=== PATIENT | female | born 1960 | race Caucasian/White ===

== ENCOUNTER → 2019-03-27 12:12 | Outpatient (CLI) | payer SELFPAY | PROVIDERS: Family Provider Family Medicine; PCP Family Medicine; Visit Provider Physician Assistant | DX: J02.9 Acute pharyngitis, unspecified (principal) ==

== ENCOUNTER 2020-04-04 16:22 | Emergency (ER) | payer SELFPAY ==
[2020-04-04 16:34] VITALS: PULSE 74; RESP 16; O2SAT 99
[2020-04-04 16:35] VITALS: BP 171/99; PULSE 75; RESP 19; O2SAT 100
[2020-04-04 16:37] VITALS: BP 160/81; PULSE 74; RESP 20; TEMP 36.9; O2SAT 98; BMI 22.8
[2020-04-04 16:49] VITALS: BP 143/95; PULSE 77; RESP 28; O2SAT 100
--- NOTE | 2020-04-04 16:50 | DI.RAD.S_ITS ---
PROCEDURE: XR CHEST 1V INDICATIONS: lightheaded, dizzy TECHNIQUE: One view of the chest was acquired. COMPARISON: None. FINDINGS: Surgical changes and devices: None. Lungs and pleura: Lungs are clear. No pleural effusions or pneumothorax. Mediastinum: Mediastinal contours appear normal. Heart size is normal. Bones and chest wall: No suspicious bony lesions. Overlying soft tissues appear unremarkable. IMPRESSION: No acute cardiopulmonary pathology. Dictated by: Sylvester Kingston M.D. on 04/04/2020 at 17:19 Approved by: Sylvester Kingston M.D. on 04/04/2020 at 17:19
--- NOTE | 2020-04-04 16:50 | DI.CT.S_ITS ---
PROCEDURE: CT HEAD/BRAIN WO CON INDICATIONS: dizzy TECHNIQUE: Noncontrast 4.5 mm thick angled axial sections acquired from the foramen magnum to the vertex, with coronal and sagittal reformats. For radiation dose reduction, the following was used: automated exposure control, adjustment of mA and/or kV according to patient size. COMPARISON: [facility], CR, XR CHEST 1V, 04/04/2020, 16:47. [facility], CT, HEAD WITHOUT CONTRAST, 01/23/2017, 12:36. FINDINGS: Image quality: Excellent. CSF spaces: Basal cisterns are patent. No extra-axial fluid collections. The ventricles are symmetric in size and shape. Brain: No intracranial bleeds or masses. There is cerebral volume loss for age, with resultant ventricular and sulcal prominence. There are periventricular and deep white matter chronic small vessel ischemic changes. There is intracranial internal carotid artery atherosclerosis. Skull and face: Calvarium and visualized facial bones appear intact, without suspicious lesions. Sinuses: Visualized sinuses and mastoids are clear. IMPRESSION: Unremarkable noncontrast head CT, without an imaging explanation found for the presenting history. Dictated by: Migel Ryan M.D. on 04/04/2020 at 16:15 Approved by: Migel Ryan M.D. on 04/04/2020 at 16:16
[2020-04-04 17:03] LABS: Add Manual Diff / Slide Review NO; Basophils Absolute Auto 0 /uL (0-100); Basophils Percent Auto 0.7 % (0-2); Eosinophils Absolute Auto 200 /uL (0-450); Eosinophils Percent Auto 4.1 % (2-4); Hemoglobin 13.6 g/dL (12.0-16.0); Lymphocytes Absolute Auto 1200 /uL (1100-4500); Lymphocytes Percent Auto 25.8 % (25-40); Mean Corpuscular Hemoglobin 33.6 PG (26-34); Mean Corpuscular Volume 98.9 fL (80-100); Monocytes Absolute Auto 400 /uL (0-900); Monocytes Percent Auto 9.6 % (3-14); Neutrophils Absolute Auto 2800 /uL (1500-7000); Neutrophils Percent Auto 59.8 % (50-75); Platelet Count 185 X10^3/uL (150-400); Red Blood Cell Count 4.04 X10^6/uL (4.0-5.2); Red Cell Distribution Width 12.6 % (11.6-14.8); White Blood Cell Count 4.7 X10^3/uL (4.5-11.0)
--- NOTE | 2020-04-04 17:08 | PC.NURSE ---
pt states she felt weak, like she had to start hanging on to something so not to fall.
[2020-04-04 17:10] LABS: INR 0.9 (0.9-1.3); Prothrombin Time 10.7 SECONDS (10.1-12.7)
[2020-04-04 17:15] LABS: Alanine Aminotransferase 96 IU/L (<35); Albumin 4.3 g/dL (3.5-5.0); Albumin Globulin Ratio 1.6 (1.0-2.8); Alkaline Phosphatase 72 U/L (38-126); Aspartate Aminotransferase 126 IU/L (14-36); BUN Creatinine Ratio 21.3 (6-22); Bilirubin Total 0.6 mg/dL (0.2-1.3); Blood Urea Nitrogen 10 mg/dL (7-17); Carbon Dioxide 26 mmol/L (22-32); Chloride 104 mmol/L (98-107); Estimated Glomerular Filt Rate > 60.0 mL/min (>60); Globulin 2.7 g/dL (1.7-4.1); Glucose 111 mg/dL (80-110); HEMOLYSIS < 15 (0-50); Magnesium 1.5 mg/dL (1.6-2.3); Potassium 3.9 mmol/L (3.4-5.1); Sodium 137 mmol/L (137-145)
[2020-04-04 17:22] LABS: Appearance Urine UA CLEAR; Bilirubin Urine UA NEGATIVE (NEGATIVE); Color Urine UA YELLOW; Glucose Urine UA NEGATIVE (Negative); Ketones Urine UA 1+ (NEGATIVE); Leukocyte Esterase Urine UA TRACE (NEGATIVE); Nitrite Urine UA NEGATIVE (Negative); Occult Blood Urine UA NEGATIVE (Negative); Protein Urine UA NEGATIVE (Negative); Specific Gravity Urine UA 1.015 (1.000-1.035); Urobilinogen Urine UA 0.2 E.U./dL (0.2)
[2020-04-04 17:23] LABS: Bacteria Urine None Seen; RBC Urine None Seen (0-5/HPF); WBC Urine None Seen (0-5/HPF); pH Urine UA 6.5 (4.5-8.0)
[2020-04-04 17:25] LABS: Troponin I < 0.012 ng/mL (0.01-0.034)
[2020-04-04 17:27] LABS: Culture Indicated Urine Cult Not Indicated; Urine Comments Microscopic Normal
[2020-04-04] MEDS: SODIUM CHLORIDE 0.9% 1,000 ML 1000 ML IV (17:52)
[2020-04-04 19:33] VITALS: BP 148/89; BP 159/87; BP 166/87; PULSE 73; PULSE 82
[2020-04-04] MEDS: MAGNESIUM OXIDE 400 MG TABLET PO (19:36)
--- NOTE | 2020-04-04 19:37 | PC.NURSE ---
Pt received one dose of 400mg po magnesium oxide and did not received provider ordered dose scheduled for tomorrow at 0900.
[2020-04-04 19:48] LABS: Creatine Kinase 68 U/L (30-135)
[2020-04-04 20:01] LABS: Troponin I < 0.012 ng/mL (0.01-0.034)
--- NOTE | 2020-04-04 20:08 | ED.DIZZY ---
HPI - Dizziness <KIRILL Maravilla - Last Filed: 04/04/20 20:29> General Chief Complaint: Dizziness Stated Complaint: NEAR SYNCOPE DIZZY WEAKNESS Time Seen by Provider: 04/04/20 16:33 Source: patient Mode of arrival: Ambulatory Limitations: no limitations History of Present Illness HPI Narrative: The patient is a 59-year-old female current everyday smoker with history of kidney stones who presents with a chief complaint of feeling overwhelmed on the tired today at approximately 2:30 p.m.. She states her fatigue comes in waves. She states she feels like she might pass out because she is so tired. She denies any chest pain, shortness of breath, fevers nausea vomiting diarrhea or abdominal pain. She denies any focal weakness or slurred speech. She states ?I have not had a stroke.She denies any urinary symptoms such as dysuria urgency or frequency. She denies any flank or back pain. The patient states that she drinks lots of ice tea all day, does not drink water. Related Data Home Medications Medication Instructions Recorded Confirmed No Known Home Medications 04/04/20 04/04/20 Allergies Allergy/AdvReac Type Severity Reaction Status Date / Time codeine Allergy makes me Verified 04/04/20 16:37 cry Review of Systems <KIRILL Maravilla - Last Filed: 04/04/20 20:29> Review of Systems Narrative: GENERAL: See HPI HEENT: Denies sinus pain, ear pain, sore throat, difficulty swallowing, dizziness. RESPIRATORY: Denies dyspnea, cough, wheezing, hemoptysis, sputum. CARDIOVASCULAR: Denies chest pain, palpitations, orthopnea, edema, GASTROINTESTINAL: Denies nausea, vomiting, abdominal pain, diarrhea, constipation, melena. : Denies dysuria, frequency, incontinence, hematuria, urinary retention. MUSCULOSKELETAL: denies weakness, joint pain, or bony pain SKIN: Denies rash, skin lesions, or other NEUROLOGIC: To HPI PSYCHIATRIC: No concerning psychosocial issues. 12 point review of systems is negative except for those stated above Patient History <KIRILL Maravilla - Last Filed: 04/04/20 20:29> Surgical History History of breast augmentation History of lumpectomy Social History Smoking Status: Current every day smoker Smoking Status: Current every day smoker alcohol intake frequency: 3 or more drinks per day Substance Use Type: does not use Exam <KIRILL Maravilla - Last Filed: 04/04/20 20:29> Narrative Exam Narrative: GENERAL: This is a well-nourished, well-developed patient, in no acute distress HEAD: Atraumatic. Normocephalic. No temporal or scalp tenderness. EYES: Pupils equal round and reactive. Extraocular motions intact. No scleral icterus. No injection or drainage. ENT: Nose without bleeding, purulent drainage or septal hematoma. Airway patent. NECK: Trachea midline. No JVD or lymphadenopathy. Supple, nontender, no meningeal signs. CARDIOVASCULAR: Regular rate and rhythm RESPIRATORY: Clear to auscultation. Breath sounds equal bilaterally. No wheezes, rales, or rhonchi. No cough. No accessory muscle use. GASTROINTESTINAL: Abdomen soft, non-tender, nondistended. No hepato-splenomegaly, or palpable masses. No guarding. EXTREMITIES: No clubbing, cyanosis, or edema. No joint tenderness, effusion, or edema noted. BACK: Nontender without deformity or crepitance. No flank tenderness. NEURO: AOx3. Strength is equal upper lower extremities bilaterally. Stable gait. No gross cranial nerve deficit. Clear speech. Alert and oriented. SKIN: No rash or erythema on visible skin Initial Vital Signs Initial Vital Signs: Vital Signs Pulse Rate 74 04/04/20 16:34 Respiratory Rate 16 04/04/20 16:34 Pulse Oximetry 99 04/04/20 16:34 <Gigi Gatica MD - Last Filed: 04/18/20 07:18> Initial Vital Signs Initial Vital Signs: Vital Signs Pulse Rate 74 04/04/20 16:34 Respiratory Rate 16 04/04/20 16:34 Pulse Oximetry 99 04/04/20 16:34 Scores <KIRILL Maravilla - Last Filed: 04/04/20 20:29> GCS Tiburcio coma scale eye opening: Spontaneous Tiburcio coma scale verbal response: Orientated Tiburcio coma scale motor response: Obey commands Tiburcio coma scale total score: 15 NIH Stroke Scale Level of Conciousness: Alert, keenly responsive Ask month/age: Answers both questions correctly. Open/close eyes, close hand: Performs both tasks correctly Best gaze horizontal: Normal Visual griffin: No visual loss Facial palsy: Normal symetrical movement Left arm drift: No drift for full 10 sec Right arm drift: No drift for full 10 sec Left leg drift: No drift for full 10 sec Right leg drift: No drift for full 10 sec Limb ataxia: Absent Sensory on face/arms/legs: Normal, no sensory loss Best language: No aphasia, normal Dysarthria: Normal Extinction or inattention: No abnormality Total NIH Stroke scale score: 0 Course <KIRILL Maravilla - Last Filed: 04/04/20 20:29> Orders Ordered: Discontinued Medications Sodium Chloride (Normal Saline 0.9%) 1,000 mls @ 1,000 mls/hr IV BOLUS ONE Stop: 04/04/20 17:44 Last Infusion: 04/04/20 20:25 Dose: 0 mls/hr Documented by: Admin: 04/04/20 17:52 Dose: 1,000 mls/hr Documented by: KBROTEM Magnesium Oxide (Mag Ox) 400 mg PO DAILY JANETH Magnesium Oxide (Mag Ox) 400 mg PO DAILY JANETH Last Admin: 04/04/20 19:36 Dose: 400 mg Documented by: [email or web address] Vital Signs Vital signs: Vital Signs - 8 hr 04/04/20 16:34 04/04/20 16:35 04/04/20 16:37 Temperature 98.4 F Pulse Rate 74 75 74 Pulse Rate [Orthostatic Lying] Pulse Rate [Orthostatic Standing] Respiratory Rate 16 19 20 Blood Pressure 171/99 H 160/81 H Blood Pressure [Orthostatic Lying] Blood Pressure [Orthostatic Sitting] Blood Pressure [Orthostatic Standing] Pulse Oximetry 99 100 98 04/04/20 16:49 04/04/20 19:33 Temperature Pulse Rate 77 Pulse Rate [Orthostatic Lying] 73 Pulse Rate [Orthostatic Standing] 82 Respiratory Rate 28 H Blood Pressure 143/95 H Blood Pressure [Orthostatic Lying] 159/87 H Blood Pressure [Orthostatic Sitting] 166/87 H Blood Pressure [Orthostatic Standing] 148/89 H Pulse Oximetry 100 <Gigi Gatica MD - Last Filed: 04/18/20 07:18> Orders Ordered: Discontinued Medications Sodium Chloride (Normal Saline 0.9%) 1,000 mls @ 1,000 mls/hr IV BOLUS ONE Stop: 04/04/20 17:44 Last Infusion: 04/04/20 20:25 Dose: 0 mls/hr Documented by: Admin: 04/04/20 17:52 Dose: 1,000 mls/hr Documented by: DENISAOTEM Magnesium Oxide (Mag Ox) 400 mg PO DAILY JANETH Magnesium Oxide (Mag Ox) 400 mg PO DAILY JANETH Last Admin: 04/04/20 19:36 Dose: 400 mg Documented by: LIGIA Vital Signs Vital signs: Vital Signs - 8 hr 04/04/20 16:34 04/04/20 16:35 04/04/20 16:37 Temperature 98.4 F Pulse Rate 74 75 74 Pulse Rate [Orthostatic Lying] Pulse Rate [Orthostatic Standing] Respiratory Rate 16 19 20 Blood Pressure 171/99 H 160/81 H Blood Pressure [Orthostatic Lying] Blood Pressure [Orthostatic Sitting] Blood Pressure [Orthostatic Standing] Pulse Oximetry 99 100 98 04/04/20 16:49 04/04/20 19:33 Temperature Pulse Rate 77 Pulse Rate [Orthostatic Lying] 73 Pulse Rate [Orthostatic Standing] 82 Respiratory Rate 28 H Blood Pressure 143/95 H Blood Pressure [Orthostatic Lying] 159/87 H Blood Pressure [Orthostatic Sitting] 166/87 H Blood Pressure [Orthostatic Standing] 148/89 H Pulse Oximetry 100 MDM - Dizziness <EMILI Maravilla-BC - Last Filed: 04/04/20 20:29> Lab Data Result diagrams: 04/04/20 16:40 04/04/20 16:40 Labs: Lab Results 04/04/20 04/04/20 04/04/20 Range/Units 16:40 16:40 16:40 WBC 4.7 (4.5-11.0) X10^3/uL RBC 4.04 (4.0-5.2) X10^6/uL Hgb 13.6 (12.0-16.0) g/dL Hct 40.0 (36-46) % MCV 98.9 (80-100) fL MCH 33.6 (26-34) PG MCHC 34.0 (30-36) % RDW 12.6 (11.6-14.8) % Plt Count 185 (150-400) X10^3/uL Neut % (Auto) 59.8 (50-75) % Lymph % (Auto) 25.8 (25-40) % [place] % (Auto) 9.6 (3-14) % Eos % (Auto) 4.1 H (2-4) % Baso % (Auto) 0.7 (0-2) % Neut # (Auto) 2800 (1071-8767) /uL Lymph # (Auto) 1200 (2945-4199) /uL [place] # (Auto) 400 (0-900) /uL Eos # (Auto) 200 (0-450) /uL Baso # (Auto) 0 (0-100) /uL PT 10.7 (10.1-12.7) SECONDS INR 0.9 (0.9-1.3) Sodium 137 (137-145) mmol/L Potassium 3.9 (3.4-5.1) mmol/L Chloride 104 (98-107) mmol/L Carbon Dioxide 26 (22-32) mmol/L BUN 10 (7-17) mg/dL Creatinine 0.47 L (0.52-1.04) mg/dL Estimated GFR > 60.0 (>60) mL/min BUN/Creatinine Ratio 21.3 (6-22) Glucose 111 H (80-110) mg/dL Calcium 10.0 (8.4-10.2) mg/dL Magnesium 1.5 L (1.6-2.3) mg/dL Total Bilirubin 0.6 (0.2-1.3) mg/dL AST 126 H (14-36) IU/L ALT 96 H (<35) IU/L Alkaline Phosphatase 72 (38-126) U/L Total Creatine Kinase CK-MB (CK-2) CK-MB (CK-2) Rel Index Troponin I < 0.012 (0.01-0.034) ng/mL Total Protein 7.0 (6.3-8.2) g/dL Albumin 4.3 (3.5-5.0) g/dL Globulin 2.7 (1.7-4.1) g/dL Albumin/Globulin Ratio 1.6 (1.0-2.8) Urine Color Urine Appearance Urine pH (4.5-8.0) Ur Specific [place] (1.000-1.035) Urine Protein (Negative) Urine Glucose (UA) (Negative) g/dL Urine Ketones (NEGATIVE) Urine Occult Blood (Negative) Urine Nitrate (Negative) Urine Bilirubin (NEGATIVE) Urine Urobilinogen (0.2) E.U./dL Ur Leukocyte Esterase (NEGATIVE) Urine RBC (0-5/HPF) Urine WBC (0-5/HPF) Urine Bacteria (None) Ur Culture Indicated? Micro UA Comment 04/04/20 04/04/20 04/04/20 Range/Units 16:55 18:35 19:33 WBC (4.5-11.0) X10^3/uL RBC (4.0-5.2) X10^6/uL Hgb (12.0-16.0) g/dL Hct (36-46) % MCV (80-100) fL MCH (26-34) PG MCHC (30-36) % RDW (11.6-14.8) % Plt Count (150-400) X10^3/uL Neut % (Auto) (50-75) % Lymph % (Auto) (25-40) % [place] % (Auto) (3-14) % Eos % (Auto) (2-4) % Baso % (Auto) (0-2) % Neut # (Auto) (2161-4044) /uL Lymph # (Auto) (3044-3817) /uL [place] # (Auto) (0-900) /uL Eos # (Auto) (0-450) /uL Baso # (Auto) (0-100) /uL PT (10.1-12.7) SECONDS INR (0.9-1.3) Sodium (137-145) mmol/L Potassium (3.4-5.1) mmol/L Chloride (98-107) mmol/L Carbon Dioxide (22-32) mmol/L BUN (7-17) mg/dL Creatinine (0.52-1.04) mg/dL Estimated GFR (>60) mL/min BUN/Creatinine Ratio (6-22) Glucose (80-110) mg/dL Calcium (8.4-10.2) mg/dL Magnesium (1.6-2.3) mg/dL Total Bilirubin (0.2-1.3) mg/dL AST (14-36) IU/L ALT (<35) IU/L Alkaline Phosphatase (38-126) U/L Total Creatine Kinase Cancelled 68 CK-MB (CK-2) Cancelled TNP CK-MB (CK-2) Rel Index Cancelled TNP Troponin I Cancelled < 0.012 (0.01-0.034) ng/mL Total Protein (6.3-8.2) g/dL Albumin (3.5-5.0) g/dL Globulin (1.7-4.1) g/dL Albumin/Globulin Ratio (1.0-2.8) Urine Color Yellow Urine Appearance Clear Urine pH 6.5 (4.5-8.0) Ur Specific [place] 1.015 (1.000-1.035) Urine Protein Negative (Negative) Urine Glucose (UA) Negative (Negative) g/dL Urine Ketones 1+ H (NEGATIVE) Urine Occult Blood Negative (Negative) Urine Nitrate Negative (Negative) Urine Bilirubin Negative (NEGATIVE) Urine Urobilinogen 0.2 (0.2) E.U./dL Ur Leukocyte Esterase Trace H (NEGATIVE) Urine RBC None seen (0-5/HPF) Urine WBC None seen (0-5/HPF) Urine Bacteria None seen (None) Ur Culture Indicated? Cult not indicated Micro UA Comment Microscopic normal Imaging Data CT scan - head: Radiologist's Impression: [address] [place] [address] CT Scan Report Signed Patient: Laura Montalvo KMR#: [id number] : 9Acct:[id number] Age/Sex: 59 / FDate of Service: 04/04/20 Loc: ED Accession Number: [id number] Procedure: CT head/brain wo con Ordering Provider: Miladis Sanon [facility] PROCEDURE: CT HEAD/BRAIN WO CON INDICATIONS: dizzy TECHNIQUE: Noncontrast 4.5 mm thick angled axial sections acquired from the foramen magnum to the vertex, with coronal and sagittal reformats. For radiation dose reduction, the following was used: automated exposure control, adjustment of mA and/or kV according to patient size. COMPARISON: [facility], CR, XR CHEST 1V, 04/04/2020, 16:47. [facility], CT, HEAD WITHOUT CONTRAST, 01/23/2017, 12:36. FINDINGS: Image quality: Excellent. CSF spaces: Basal cisterns are patent. No extra-axial fluid collections. The ventricles are symmetric in size and shape. Brain: No intracranial bleeds or masses. There is cerebral volume loss for age, with resultant ventricular and sulcal prominence. There are periventricular and deep white matter chronic small vessel ischemic changes. There is intracranial internal carotid artery atherosclerosis. Skull and face: Calvarium and visualized facial bones appear intact, without suspicious lesions. Sinuses: Visualized sinuses and mastoids are clear. IMPRESSION: Unremarkable noncontrast head CT, without an imaging explanation found for the presenting history. Dictated by: Migel Ryan M.D. on 04/04/2020 at 16:15 Approved by: Migel Ryan M.D. on 04/04/2020 at 16:16 Chest x-ray: Radiologist's Impression: [address] [place] [id number] XRay Report Signed Patient: Laura Montalvo KMR#: [id number] : 9Acct:[id number] Age/Sex: 59 / FDate of Service: 04/04/20 Loc: ED Accession Number: [id number] Procedure: XR chest [facility]V [facility]ST 1V INDICATIONS: lightheaded, dizzy TECHNIQUE: One view of the chest was acquired. COMPARISON: None. FINDINGS: Surgical changes and devices: None. Lungs and pleura: Lungs are clear. No pleural effusions or pneumothorax. Mediastinum: Mediastinal contours appear normal. Heart size is normal. Bones and chest wall: No suspicious bony lesions. Overlying soft tissues appear unremarkable. IMPRESSION: No acute cardiopulmonary pathology. Dictated by: Sylvester Kingston M.D. on 04/04/2020 at 17:19 Approved by: Sylvester Kingston M.D. on 04/04/2020 at 17:19 ECG Data Attestation: I personally reviewed and interpreted this ECG as follows: Interpretation: Sinus rhythm. PVC noted. Ventricular rate 72. P.r. interval 206. viewed by Dr Gavi CARTWRIGHT Narrative Medical decision making narrative: The patient is a 59-year-old female who presents with a chief complaint of sudden onset generalized weakness and dizziness. Her NIH is 0. Head CT is clean. She has a negative troponin, negative repeat troponin. Her chest x-ray an EKG had no acute findings. She feels much improved after the above-stated therapies, has normal orthostatics and a normal urinalysis endorse crusting go home. I encouraged follow-up with primary care provider as well as coming back to emergency department for any acute concerns. It is possible that this could be from drinking lots of ice tea all day, not drinking any water. Patient has no questions or concerns upon discharge and states understanding of return precautions as well as follow-up care. <Gigi Gatica MD - Last Filed: 04/18/20 07:18> Lab Data Labs: Lab Results 04/04/20 04/04/20 04/04/20 Range/Units 16:40 16:40 16:40 WBC 4.7 (4.5-11.0) X10^3/uL RBC 4.04 (4.0-5.2) X10^6/uL Hgb 13.6 (12.0-16.0) g/dL Hct 40.0 (36-46) % MCV 98.9 (80-100) fL MCH 33.6 (26-34) PG MCHC 34.0 (30-36) % RDW 12.6 (11.6-14.8) % Plt Count 185 (150-400) X10^3/uL Neut % (Auto) 59.8 (50-75) % Lymph % (Auto) 25.8 (25-40) % [place] % (Auto) 9.6 (3-14) % Eos % (Auto) 4.1 H (2-4) % Baso % (Auto) 0.7 (0-2) % Neut # (Auto) 2800 (3123-0561) /uL Lymph # (Auto) 1200 (3682-9179) /uL [place] # (Auto) 400 (0-900) /uL Eos # (Auto) 200 (0-450) /uL Baso # (Auto) 0 (0-100) /uL PT 10.7 (10.1-12.7) SECONDS INR 0.9 (0.9-1.3) Sodium 137 (137-145) mmol/L Potassium 3.9 (3.4-5.1) mmol/L Chloride 104 (98-107) mmol/L Carbon Dioxide 26 (22-32) mmol/L BUN 10 (7-17) mg/dL Creatinine 0.47 L (0.52-1.04) mg/dL Estimated GFR > 60.0 (>60) mL/min BUN/Creatinine Ratio 21.3 (6-22) Glucose 111 H (80-110) mg/dL Calcium 10.0 (8.4-10.2) mg/dL Magnesium 1.5 L (1.6-2.3) mg/dL Total Bilirubin 0.6 (0.2-1.3) mg/dL AST 126 H (14-36) IU/L ALT 96 H (<35) IU/L Alkaline Phosphatase 72 (38-126) U/L Total Creatine Kinase CK-MB (CK-2) CK-MB (CK-2) Rel Index Troponin I < 0.012 (0.01-0.034) ng/mL Total Protein 7.0 (6.3-8.2) g/dL Albumin 4.3 (3.5-5.0) g/dL Globulin 2.7 (1.7-4.1) g/dL Albumin/Globulin Ratio 1.6 (1.0-2.8) Urine Color Urine Appearance Urine pH (4.5-8.0) Ur Specific [place] (1.000-1.035) Urine Protein (Negative) Urine Glucose (UA) (Negative) g/dL Urine Ketones (NEGATIVE) Urine Occult Blood (Negative) Urine Nitrate (Negative) Urine Bilirubin (NEGATIVE) Urine Urobilinogen (0.2) E.U./dL Ur Leukocyte Esterase (NEGATIVE) Urine RBC (0-5/HPF) Urine WBC (0-5/HPF) Urine Bacteria (None) Ur Culture Indicated? Micro UA Comment 04/04/20 04/04/20 04/04/20 Range/Units 16:55 18:35 19:33 WBC (4.5-11.0) X10^3/uL RBC (4.0-5.2) X10^6/uL Hgb (12.0-16.0) g/dL Hct (36-46) % MCV (80-100) fL MCH (26-34) PG MCHC (30-36) % RDW (11.6-14.8) % Plt Count (150-400) X10^3/uL Neut % (Auto) (50-75) % Lymph % (Auto) (25-40) % [place] % (Auto) (3-14) % Eos % (Auto) (2-4) % Baso % (Auto) (0-2) % Neut # (Auto) (2734-5332) /uL Lymph # (Auto) (5881-1737) /uL [place] # (Auto) (0-900) /uL Eos # (Auto) (0-450) /uL Baso # (Auto) (0-100) /uL PT (10.1-12.7) SECONDS INR (0.9-1.3) Sodium (137-145) mmol/L Potassium (3.4-5.1) mmol/L Chloride (98-107) mmol/L Carbon Dioxide (22-32) mmol/L BUN (7-17) mg/dL Creatinine (0.52-1.04) mg/dL Estimated GFR (>60) mL/min BUN/Creatinine Ratio (6-22) Glucose (80-110) mg/dL Calcium (8.4-10.2) mg/dL Magnesium (1.6-2.3) mg/dL Total Bilirubin (0.2-1.3) mg/dL AST (14-36) IU/L ALT (<35) IU/L Alkaline Phosphatase (38-126) U/L Total Creatine Kinase Cancelled 68 CK-MB (CK-2) Cancelled TNP CK-MB (CK-2) Rel Index Cancelled TNP Troponin I Cancelled < 0.012 (0.01-0.034) ng/mL Total Protein (6.3-8.2) g/dL Albumin (3.5-5.0) g/dL Globulin (1.7-4.1) g/dL Albumin/Globulin Ratio (1.0-2.8) Urine Color Yellow Urine Appearance Clear Urine pH 6.5 (4.5-8.0) Ur Specific [place] 1.015 (1.000-1.035) Urine Protein Negative (Negative) Urine Glucose (UA) Negative (Negative) g/dL Urine Ketones 1+ H (NEGATIVE) Urine Occult Blood Negative (Negative) Urine Nitrate Negative (Negative) Urine Bilirubin Negative (NEGATIVE) Urine Urobilinogen 0.2 (0.2) E.U./dL Ur Leukocyte Esterase Trace H (NEGATIVE) Urine RBC None seen (0-5/HPF) Urine WBC None seen (0-5/HPF) Urine Bacteria None seen (None) Ur Culture Indicated? Cult not indicated Micro UA Comment Microscopic normal Discharge Plan Departure Patient Disposition: Home Clinical Impression: Weakness Discharge Date/Time: 04/04/20 20:30 Instructions: DI for Dehydration -- Adult, DI for Dizziness-Nonvertigo Activity Restrictions/Additional Instructions: Thank you for trusting us with your care today. As discussed, your lab work came back well as well as your imaging. It is possible that your drinking too much iced tea, not enough water. Please push non caffeinated fluids. Please follow-up with primary care provider in the next few days. Please come back to emergency department for any acute concerns such as chest pain, shortness of breath etcetera Please follow-up with [facility]. I believe that Dr. Goel took over for many of Dr. England's patients I also given contact information [facility] human resources manager manufacturing. They can help you identify primary care provider but is accepting new patients. Prescriptions: No Action No Known Home Medications RF: 0 Referrals: [facility] [Outside] Kendall England MD [Primary Care Provider] - <Gigi Gatica MD - Last Filed: 04/18/20 07:18> Cosign ED Attending Cosignature Attestation: I was immediately available in the department for consultation. This documentation has been reviewed and I agree with assessment and plan. Supervised by Gigi Gatica MD
[2020-04-04 20:30] VITALS: BP 148/89; PULSE 72; RESP 13; O2SAT 99
== END 2020-04-04 20:30 | disposition home or self-care (01) ==
PROVIDERS: Emergency Provider Nurse Practitioner Family; Family Provider Family Medicine; PCP Family Medicine
DX: R53.1 Weakness (principal); R42 Dizziness and giddiness
CPT/HCPCS: 36415; 70450; 71045; 80053; 81003; 81015; 82550; 83735; 84484; 85025; 85610; 93005; 93010; 96360; 96361; 99284

== ENCOUNTER → 2020-12-26 13:51 | Outpatient (CLI) | payer OTHER, SELFPAY ==
[2020-12-26] MEDS: COVID-19 VACC #1, MRNA(MOD) 100 MCG/0.5 ML VIAL IM (13:56)
== END ==
PROVIDERS: Visit Provider Internal Medicine
DX: Z23 Encounter for immunization (principal)
CPT/HCPCS: 0011A; 91301

== ENCOUNTER → 2021-01-23 13:43 | Outpatient (CLI) | payer OTHER, SELFPAY ==
[2021-01-23] MEDS: COVID-19 VACC #2, MRNA(MOD) 100 MCG/0.5 ML VIAL IM (13:48)
== END ==
PROVIDERS: Visit Provider Internal Medicine
DX: Z23 Encounter for immunization (principal)
CPT/HCPCS: 0012A; 91301

== ENCOUNTER 2023-05-21 11:42 | Observation (INO) | payer MEDICAID, OTHER, SELFPAY ==
[2023-05-21 11:44] VITALS: BP 95/51; PULSE 81; RESP 14; TEMP 36.1; O2SAT 99; BMI 22.4
--- NOTE | 2023-05-21 12:39 | DI.US.S_ITS ---
PROCEDURE: US PERIPH VENOUS LOW EXTREM LT INDICATIONS: Please evaluate for dvt TECHNIQUE: Real-time imaging, as well as color and pulse Doppler interrogation, were performed of the lower extremity deep veins from the inguinal ligament to the popliteal fossa, with documentation of the visualized calf veins. COMPARISON: None. FINDINGS: Occlusive deep venous thrombosis can be seen from the common femoral vein through the femoral vein and including the popliteal vein, with potential trickle flow seen within the left popliteal vein. The visualized profundus femoris vein and the greater saphenous vein are also occluded. IMPRESSION: Extensive left lower extremity deep venous thrombosis can be seen, with occlusion involving the common femoral vein through the popliteal vein. The visualized greater saphenous vein and the profundus femoral strain are also seen. Dictated by: Migel Ryan M.D. on 05/21/2023 at 12:28 Approved by: Migel Ryan M.D. on 05/21/2023 at 12:29
[2023-05-21 15:01] VITALS: BP 113/52; PULSE 70; O2SAT 100
--- NOTE | 2023-05-21 15:07 | ED.EXTPRO ---
HPI - Extremity Problem <Marquita Ivey PA-C - Last Filed: 05/21/23 16:22> General Chief complaint: Extremity Problem,Nontraumatic Stated complaint: rule out DVT Time Seen by Provider: 05/21/23 14:31 Source: patient Mode of arrival: Wheelchair History of Present Illness HPI Narrative: Patient is a 62-year-old female who presents with unilateral lower extremity swelling. She reports she recently had a dental infection with delayed access to antibiotic treatment and she was quite ill for approximately 1 month, mostly lying in bed, with abdominal pain and diarrhea. During this time she had very little activity. She is not take any hormones. She is a 30 year smoker but recently quit. She presents today because she has left lower extremity swelling. She has minimal left lower extremity pain, 2/10. She denies any chest pain, cough, shortness of breath. Related Data Previous Rx's Medication Instructions Recorded apixaban 5 mg tablet 5 mg PO BID 90 days #189 tabs 05/22/23 Allergies Allergy/AdvReac Type Severity Reaction Status Date / Time codeine Allergy makes me Verified 05/21/23 11:44 cry Review of Systems <Marquita Ivey PA-C - Last Filed: 05/21/23 16:22> Review of Systems ROS Unobtainable: All systems reviewed & are unremarkable except as noted in HPI and below Patient History <Marquita Ivey PA-C - Last Filed: 05/21/23 16:22> Surgical History History of breast augmentation History of lumpectomy Social History household members: none Smoking Status: Former smoker alcohol intake: former Smoking Status: Current every day smoker alcohol intake frequency: 3 or more drinks per day Substance Use Type: does not use Exam <Marquita Ivey PA-C - Last Filed: 05/21/23 16:22> Narrative Exam Narrative: GENERAL: 62 year old patient appears stated age. Well-developed patient, in no distress. NEURO: AOx3. HEAD: Atraumatic. Normocephalic. EYES: Pupils equal round and reactive. Extraocular motions intact. No scleral icterus. No injection or drainage. CARDIOVASCULAR: Regular rate and rhythm without murmurs, gallops, or rubs. RESPIRATORY: Clear to auscultation. Breath sounds equal bilaterally. No wheezes, rales, or rhonchi. EXTREMITIES: Diffuse edema of left lower extremity from ankle to knee, minimal appreciable swelling above the knee into the groin. Distal pulses intact. Foot is warm, sensation is intact. SKIN: No rash or erythema of visible areas Initial Vital Signs Initial Vital Signs: Vital Signs Temperature 97.0 F L 05/21/23 11:44 Pulse Rate 81 05/21/23 11:44 Respiratory Rate 14 05/21/23 11:44 Blood Pressure 95/51 L 05/21/23 11:44 Pulse Oximetry 99 05/21/23 11:44 Oxygen Delivery Method Room Air 05/21/23 11:44 <Gigi Gatica MD - Last Filed: 05/29/23 07:10> Initial Vital Signs Initial Vital Signs: Vital Signs Temperature 97.0 F L 05/21/23 11:44 Pulse Rate 81 05/21/23 11:44 Respiratory Rate 14 05/21/23 11:44 Blood Pressure 95/51 L 05/21/23 11:44 Pulse Oximetry 99 05/21/23 11:44 Oxygen Delivery Method Room Air 05/21/23 11:44 Scores <Marquita Ivey PA-C - Last Filed: 05/21/23 16:22> Carlito' Criteria for DVT Active Cancer (Treatment within 6 months): No Bedridden recently >3 days or major surgery within 4 weeks: Yes Calf Swelling >3cm compared to other leg: Yes Collateral (nonvericose) superficial veins present: No Entire leg swollen: Yes Localized tenderness along the deep vein system: No Pitting edema, confined to symtomatic leg: No Paralysis, paresis, or recent plaster immobilization of ext: No Previously documented DVT: No Alternative dx to DVT as likely or more likely: No Sincere criteria for DVT: 3 <Gigi Gatica MD - Last Filed: 05/29/23 07:10> Sincere Criteria for DVT Carlito' criteria for DVT: 3 Course <Marquita Ivey PA-C - Last Filed: 05/21/23 16:22> Orders Ordered: Discontinued Medications Acetaminophen (Acetaminophen 325 Mg Tablet) 650 mg PO Q6H PRN PRN Reason: Fever/Mild Pain (1-3) Last Admin: 05/21/23 23:59 Dose: 650 mg Documented By: Apixaban (Apixaban 5 Mg Tablet) 10 mg PO BID [facility] Stop: 05/28/23 21:01 Last Admin: 05/22/23 08:35 Dose: 10 mg Documented By: TERESA Heparin Sodium (Porcine) (Heparin 5,000 Unit/Ml Vial) 4,600 unit 80 unit/kg (4600 unit) IV NOW ONE Stop: 05/21/23 18:48 Last Admin: 05/21/23 19:58 Dose: 4,600 unit Documented By: Heparin Sodium/Dextrose (Heparin Drip) 25,000 unit in 500 mls @ 24 mls/hr IV CONT [facility]; Protocol Stop: 05/22/23 10:00 Last Admin: 05/21/23 20:09 Dose: 1,200 units/hr, 24 mls/hr Documented By: Co-signed By: ADI Naloxone HCl (Naloxone 0.4 Mg/Ml Vial) 0.2 mg IV Q2MIN PRN PRN Reason: Opiate Reversal Ondansetron HCl (Ondansetron 4 Mg/2 Ml Inj) 4 mg IV Q8HR PRN PRN Reason: Nausea And Vomiting Vital Signs Vital signs: Vital Signs - 8 hr 05/21/23 11:44 05/21/23 15:01 Temperature 97.0 F L Pulse Rate 81 70 Respiratory Rate 14 Blood Pressure 95/51 L 113/52 L Pulse Oximetry 99 100 Oxygen Delivery Method Room Air Room Air <Gigi Gatica MD - Last Filed: 05/29/23 07:10> Orders Ordered: Discontinued Medications Acetaminophen (Acetaminophen 325 Mg Tablet) 650 mg PO Q6H PRN PRN Reason: Fever/Mild Pain (1-3) Last Admin: 05/21/23 23:59 Dose: 650 mg Documented By: Apixaban (Apixaban 5 Mg Tablet) 10 mg PO BID [facility] Stop: 05/28/23 21:01 Last Admin: 05/22/23 08:35 Dose: 10 mg Documented By: TERESA Heparin Sodium (Porcine) (Heparin 5,000 Unit/Ml Vial) 4,600 unit 80 unit/kg (4600 unit) IV NOW ONE Stop: 05/21/23 18:48 Last Admin: 05/21/23 19:58 Dose: 4,600 unit Documented By: SR Heparin Sodium/Dextrose (Heparin Drip) 25,000 unit in 500 mls @ 24 mls/hr IV CONT JANETH; Protocol Stop: 05/22/23 10:00 Last Admin: 05/21/23 20:09 Dose: 1,200 units/hr, 24 mls/hr Documented By: Co-signed By: VH Naloxone HCl (Naloxone 0.4 Mg/Ml Vial) 0.2 mg IV Q2MIN PRN PRN Reason: Opiate Reversal Ondansetron HCl (Ondansetron 4 Mg/2 Ml Inj) 4 mg IV Q8HR PRN PRN Reason: Nausea And Vomiting Vital Signs Vital signs: Vital Signs - 8 hr 05/21/23 11:44 05/21/23 15:01 Temperature 97.0 F L Pulse Rate 81 70 Respiratory Rate 14 Blood Pressure 95/51 L 113/52 L Pulse Oximetry 99 100 Oxygen Delivery Method Room Air Room Air MDM - Extremity (Nontraumatic) <Marquita Ivey PA-C - Last Filed: 05/21/23 16:22> Lab Data 05/22/23 02:17 05/22/23 02:17 Labs: Lab Results 05/21/23 05/21/23 05/21/23 Range/Units 16:01 16:01 16:01 WBC 6.6 (4.5-11.0) X10^3/uL RBC 4.02 (4.0-5.2) X10^6/uL Hgb 13.2 (12.0-16.0) g/dL Hct 38.7 (36-46) % MCV 96.2 (80-100) fL MCH 32.7 (26-34) PG MCHC 34.0 (30-36) % RDW 13.1 (11.6-14.8) % Plt Count 318 (150-400) X10^3/uL Neut % (Auto) 73.8 (50-75) % Lymph % (Auto) 9.9 L (25-40) % [place] % (Auto) 10.5 (3-14) % Eos % (Auto) 5.0 H (2-4) % Baso % (Auto) 0.8 (0-2) % Neut # (Auto) 4900 (8082-9853) /uL Lymph # (Auto) 700 L (4080-9958) /uL [place] # (Auto) 700 (0-900) /uL Eos # (Auto) 300 (0-450) /uL Baso # (Auto) 100 (0-100) /uL PT 13.2 H (10.1-12.7) SECONDS INR 1.2 (0.9-1.3) APTT 29 (26-36) SECONDS Sodium 136 L (137-145) mmol/L Potassium 4.0 (3.4-5.1) mmol/L Chloride 103 (98-107) mmol/L Carbon Dioxide 26 (22-32) mmol/L BUN 15 (7-17) mg/dL Creatinine 0.71 (0.52-1.04) mg/dL Estimated GFR > 60 (>60) mL/min BUN/Creatinine Ratio 21.1 (6-22) Glucose 111 H (80-110) mg/dL Calcium 9.9 (8.4-10.2) mg/dL Imaging Data US - DVT: Radiologist's Impression: PROCEDURE:? US PERIPH VENOUS LOW EXTREM LT ? INDICATIONS:? Please evaluate for dvt ? TECHNIQUE:? Real-time imaging, as well as color and pulse Doppler interrogation, were performed of the lower extremity deep veins from the inguinal ligament to the popliteal fossa, with documentation of the visualized calf veins.? ? COMPARISON:? None. ? FINDINGS:? Occlusive deep venous thrombosis can be seen from the common femoral vein through the femoral vein and including the popliteal vein, with potential trickle flow seen within the left popliteal vein. ? The visualized profundus femoris vein and the greater saphenous vein are also occluded. ? ? IMPRESSION:? Extensive left lower extremity deep venous thrombosis can be seen, with occlusion involving the common femoral vein through the popliteal vein.? The visualized greater saphenous vein and the profundus femoral strain are also seen.? ? ? Dictated by: Migel Ryan M.D. on 05/21/2023 at 12:28 ? ? Approved by: Migel Ryan M.D. on 05/21/2023 at 12:29 ? MDM Narrative Medical decision making narrative: Multiple etiologies for patient's symptoms considered including, but not limited to: DVT, cellulitis, soft tissue injury Ultrasound shows extensive DVT with occlusion of the common femoral vein through the popliteal vein. Patient will be admitted to observation on a heparin drip. Patient and her son understand her diagnosis and treatment. 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 She is not in any pain at this time. Hospitalist aware and will admit. <Gigi Gatica MD - Last Filed: 05/29/23 07:10> Lab Data Labs: Lab Results 05/21/23 05/21/23 05/21/23 Range/Units 16:01 16:01 16:01 WBC 6.6 (4.5-11.0) X10^3/uL RBC 4.02 (4.0-5.2) X10^6/uL Hgb 13.2 (12.0-16.0) g/dL Hct 38.7 (36-46) % MCV 96.2 (80-100) fL MCH 32.7 (26-34) PG MCHC 34.0 (30-36) % RDW 13.1 (11.6-14.8) % Plt Count 318 (150-400) X10^3/uL Neut % (Auto) 73.8 (50-75) % Lymph % (Auto) 9.9 L (25-40) % [place] % (Auto) 10.5 (3-14) % Eos % (Auto) 5.0 H (2-4) % Baso % (Auto) 0.8 (0-2) % Neut # (Auto) 4900 (4664-5211) /uL Lymph # (Auto) 700 L (3088-8726) /uL [place] # (Auto) 700 (0-900) /uL Eos # (Auto) 300 (0-450) /uL Baso # (Auto) 100 (0-100) /uL PT 13.2 H (10.1-12.7) SECONDS INR 1.2 (0.9-1.3) APTT 29 (26-36) SECONDS Sodium 136 L (137-145) mmol/L Potassium 4.0 (3.4-5.1) mmol/L Chloride 103 (98-107) mmol/L Carbon Dioxide 26 (22-32) mmol/L BUN 15 (7-17) mg/dL Creatinine 0.71 (0.52-1.04) mg/dL Estimated GFR > 60 (>60) mL/min BUN/Creatinine Ratio 21.1 (6-22) Glucose 111 H (80-110) mg/dL Calcium 9.9 (8.4-10.2) mg/dL Discharge Plan Departure Patient Disposition: Admitted As Inpatient Clinical Impression: Deep vein thrombosis of lower extremity Admit Date/Time: 05/21/23 17:43 Admit Provider: Brad Gardiner <Gigi Gatica MD - Last Filed: 05/29/23 07:10> Cosign ED Attending Cosignature Attestation: I was immediately available in the department for consultation. ?This documentation has been reviewed and I agree with assessment and plan. Supervised by Gigi Gatica MD
[2023-05-21 16:12] LABS: Add Manual Diff / Slide Review NO; Basophils Absolute Auto 100 /uL (0-100); Basophils Percent Auto 0.8 % (0-2); Eosinophils Absolute Auto 300 /uL (0-450); Hematocrit 38.7 % (36-46); Hemoglobin 13.2 g/dL (12.0-16.0); Lymphocytes Absolute Auto 700 /uL (1100-4500); Lymphocytes Percent Auto 9.9 % (25-40); Mean Corpuscular Hemoglobin 32.7 PG (26-34); Mean Corpuscular Volume 96.2 fL (80-100); Monocytes Absolute Auto 700 /uL (0-900); Monocytes Percent Auto 10.5 % (3-14); Neutrophils Absolute Auto 4900 /uL (1500-7000); Neutrophils Percent Auto 73.8 % (50-75); Platelet Count 318 X10^3/uL (150-400); Red Blood Cell Count 4.02 X10^6/uL (4.0-5.2); Red Cell Distribution Width 13.1 % (11.6-14.8); White Blood Cell Count 6.6 X10^3/uL (4.5-11.0)
[2023-05-21 16:22] LABS: INR 1.2 (0.9-1.3); Prothrombin Time 13.2 SECONDS (10.1-12.7)
[2023-05-21 16:25] LABS: PTT Partial Thromboplastin Tim 29 SECONDS (26-36)
[2023-05-21 16:26] LABS: BUN Creatinine Ratio 21.1 (6-22); Blood Urea Nitrogen 15 mg/dL (7-17); Calcium 9.9 mg/dL (8.4-10.2); Carbon Dioxide 26 mmol/L (22-32); Chloride 103 mmol/L (98-107); Estimated Glomerular Filt Rate > 60 mL/min (>60); Glucose 111 mg/dL (80-110); HEMOLYSIS < 15 (0-50); Sodium 136 mmol/L (137-145)
--- NOTE | 2023-05-21 18:26 | P.HP_ITS ---
History of Present Illness History of Present Illness Date Patient Seen: 05/21/23 Time Patient Seen: 16:00 Chief complaint: rule out DVT Narrative: Ms. Montalvo is a 62W with PMH of periodontal disease who presents to the hospital with swollen left leg. She states she had periodontitis for much of her life. She had worsening symptoms about a month ago. She then developed generalized abdominal discomfort and bloating which she attributes to her dental disease. She has been basically in bed and minimally mobile for the last month. She has noted over the last few days swelling in her left leg. She had no chest pain or shortness of breath. On no medications except for an antibiotic for her dental issues. No history of VTE, no family history of VTE. No recent travel. She has no abnormal vaginal bleeding. She has a history of smoking. She notes recently some night sweats. No weight loss. Never had a colonoscopy. No blood in stool. In the ED workup was done, vitals notable for afebrile, blood pressure 90s/50s, heart rate in 70s, sats 100% on room air. Labs reviewed and notable for WBC 6.6, hgb 13.2, plts 318. INR 1.2. Na 136, BUN 15, creatinine 0.71. Vascular ultrasound of her left leg showed extensive left DVT involving femoral vein. She was admitted for further treatment. [facility] Surgical History History of breast augmentation History of lumpectomy Social History Smoking Status: Current every day smoker Meds Home Medications and Allergies Home Medications Medication Instructions Recorded Confirmed Type No Known Home Medications 04/04/20 04/04/20 History Allergies Allergy/AdvReac Type Severity Reaction Status Date / Time codeine Allergy makes me Verified 05/21/23 11:44 cry Review of Systems Review of Systems Narrative: 14 systems reviewed and negative aside from what is noted in HPI Exam Vital Signs (past 8 hours): - 05/21/23 11:44 05/21/23 15:01 Temperature 97.0 F L Pulse Rate 81 70 Respiratory Rate 14 Blood Pressure 95/51 L 113/52 L Pulse Oximetry 99 100 Oxygen Delivery Method Room Air Room Air Oxygen Delivery Method Room Air Narrative Exam Narrative: GEN: no acute distress CV: regular rate and rhythm, no murmurs PULM: clear bilaterally ABD: soft, nontender EXT: entirety of left leg swollen, slightly erythematous Objective Labs 05/21/23 16:01 05/21/23 16:01 Labs: Laboratory Results - last 24 hr 05/21/23 05/21/23 05/21/23 16:01 16:01 16:01 WBC 6.6 RBC 4.02 Hgb 13.2 Hct 38.7 MCV 96.2 MCH 32.7 MCHC 34.0 RDW 13.1 Plt Count 318 Neut % (Auto) 73.8 Lymph % (Auto) 9.9 L [place] % (Auto) 10.5 Eos % (Auto) 5.0 H Baso % (Auto) 0.8 Neut # (Auto) 4900 Lymph # (Auto) 700 L [place] # (Auto) 700 Eos # (Auto) 300 Baso # (Auto) 100 PT 13.2 H INR 1.2 APTT 29 Sodium 136 L Potassium 4.0 Chloride 103 Carbon Dioxide 26 BUN 15 Creatinine 0.71 Estimated GFR > 60 BUN/Creatinine Ratio 21.1 Glucose 111 H Calcium 9.9 Assessment & Plan Assessment & Plan narrative: 1. Acute DVT -suspect etiology is possibly decreased mobility recently -due to size of DVT has higher risk of progression and complication so will observe in hospital -no clinical signs or symptoms of PE -no signs of phlegmasia cerulea dolens -start anticoagulation with IV heparin -plan to switch on dc to oral medication for at least 3 months -if abdominal pain returns will get CT of abdomen -will need to complete up to date cancer screening as outpatient, including colonoscopy which she has never had -will need to setup pcp on discharge 2. Periodontitis -she has been prescribed antibiotic, last dose tonight 05/21 I have discussed plan and obtained history from patient and family. I have discussed plan of care with ED PA and bedside nurse. I have reviewed labs, imaging. CODE: Full Proxy: Letha Donovan, son [facility] - Meds 'Current medications' to include all prescriptions, [id number] products, herbals, cannabis/cannabidiol products, and vitamin/mineral/dietary (nutritional) supplements. I have utilized all available resources to obtain, update, or review the patient?s current medications. [If Yes, STOP here]: Yes
[2023-05-21 18:29] VITALS: BMI 22.6
[2023-05-21 19:00] VITALS: BP 101/63; PULSE 90; RESP 18; TEMP 36.4; O2SAT 98
[2023-05-21 19:34] VITALS: BP 91/57; PULSE 97; RESP 17; TEMP 37.7; O2SAT 94
[2023-05-21] MEDS: HEPARIN 5,000 UNIT/ML VIAL 4600 UNIT IV (19:58)
[2023-05-21] MEDS: HEPARIN DRIP 25,000 UNIT/500 ML IV.SOLN 24 UNIT IV (20:09)
[2023-05-21 23:40] VITALS: BP 85/46; PULSE 86; RESP 16; TEMP 37.1; O2SAT 96
[2023-05-21] MEDS: ACETAMINOPHEN 325 MG TABLET 650 MG PO (23:59)
[2023-05-22 02:24] LABS: Add Manual Diff / Slide Review NO; Basophils Absolute Auto 0 /uL (0-100); Basophils Percent Auto 0.7 % (0-2); Eosinophils Absolute Auto 200 /uL (0-450); Eosinophils Percent Auto 3.8 % (2-4); Lymphocytes Absolute Auto 800 /uL (1100-4500); Lymphocytes Percent Auto 12.6 % (25-40); Mean Corpuscular HGB Conc 34.1 % (30-36); Mean Corpuscular Hemoglobin 32.6 PG (26-34); Mean Corpuscular Volume 95.5 fL (80-100); Monocytes Absolute Auto 800 /uL (0-900); Monocytes Percent Auto 12.6 % (3-14); Neutrophils Absolute Auto 4500 /uL (1500-7000); Neutrophils Percent Auto 70.3 % (50-75); Platelet Count 346 X10^3/uL (150-400); Red Blood Cell Count 3.67 X10^6/uL (4.0-5.2); White Blood Cell Count 6.4 X10^3/uL (4.5-11.0)
[2023-05-22 02:35] LABS: Blood Urea Nitrogen 13 mg/dL (7-17); Calcium 9.1 mg/dL (8.4-10.2); Carbon Dioxide 24 mmol/L (22-32); Chloride 102 mmol/L (98-107); Estimated Glomerular Filt Rate > 60 mL/min (>60); Glucose 110 mg/dL (80-110); HEMOLYSIS < 15 (0-50); Potassium 3.9 mmol/L (3.4-5.1); Sodium 133 mmol/L (137-145)
[2023-05-22 02:48] LABS: PTT Partial Thromboplastin Tim 144 SECONDS (26-36)
[2023-05-22 05:36] VITALS: BP 91/51; PULSE 63; RESP 17; TEMP 36.9; O2SAT 96
[2023-05-22 08:00] VITALS: BP 82/46; PULSE 68; RESP 16; O2SAT 98
[2023-05-22] MEDS: APIXABAN 5 MG TABLET 10 MG PO (08:35)
[2023-05-22 08:44] LABS: PTT Partial Thromboplastin Tim 122 SECONDS (26-36)
--- NOTE | 2023-05-22 11:37 | PM.DS.1 ---
History of Present Illness History of Present Illness Date Patient Seen: 05/22/23 Time Patient Seen: 11:38 Chief complaint: rule out DVT Narrative: Per admitting provider, Ms. Montalvo is a 62W with PMH of periodontal disease who presents to the hospital with swollen left leg. She states she had periodontitis for much of her life. She had worsening symptoms about a month ago. She then developed generalized abdominal discomfort and bloating which she attributes to her dental disease. She has been basically in bed and minimally mobile for the last month. She has noted over the last few days swelling in her left leg. She had no chest pain or shortness of breath. On no medications except for an antibiotic for her dental issues. No history of VTE, no family history of VTE. No recent travel. She has no abnormal vaginal bleeding. She has a history of smoking. She notes recently some night sweats. No weight loss. Never had a colonoscopy. No blood in stool. In the ED workup was done, vitals notable for afebrile, blood pressure 90s/50s, heart rate in 70s, sats 100% on room air. Labs reviewed and notable for WBC 6.6, hgb 13.2, plts 318. INR 1.2. Na 136, BUN 15, creatinine 0.71. Vascular ultrasound of her left leg showed extensive left DVT involving femoral vein. She was admitted for further treatment. Discharge Providers Provider Date of admission: 05/21/23 17:43 Discharge Date: 05/23/23 Primary care physician: Doctor Sheri MD Discharge provider: Manny Cowan DO Summary Hospital Course Discharge Diagnosis: 1. Acute DVT 2. Periodontitis Hospital Course: This is a 62 year old female who presented with LLE swelling. She was found to have an extensively sized DVT on ultrasound. She was started on IV heparin which she tolerated well. She was transitioned to oral anticoagulation the following morning with no signs of phlemasia ceulea dolens. She had minimal pain and was able to ambulate without assistance. She was borderline hypotensive, but had no abdominal pain, dizziness, or respiratory symptoms concnerning for PE or progression. Patient reported that her blood pressure usually runs this low. I recommend cancer screening as an outpatient with PCP, she was given resources to establish with a primary care, along with a prescription for 3 months of apixaban after she enrolled with health insurance. Time Spent with Patient Time spent: Greater than 30 minutes Exam Vital Signs (past 8 hours): - 05/22/23 05:36 05/22/23 08:00 Temperature 98.5 F Pulse Rate 63 68 Respiratory Rate 17 16 Blood Pressure 91/51 L 82/46 L Pulse Oximetry 96 98 Oxygen Flow Rate 0 Oxygen Delivery Method Room Air Oxygen Flow Rate 0 Narrative Exam Narrative: GEN: no acute distress CV: regular rate and rhythm, no murmurs PULM: clear bilaterally ABD: soft, nontender EXT: entirety of left leg swollen, mild erythema but no warmth or tenderness Objective Labs 05/22/23 02:17 05/22/23 02:17 Labs: Laboratory Results - last 24 hr 05/21/23 05/21/23 05/21/23 16:01 16:01 16:01 WBC 6.6 RBC 4.02 Hgb 13.2 Hct 38.7 MCV 96.2 MCH 32.7 MCHC 34.0 RDW 13.1 Plt Count 318 Neut % (Auto) 73.8 Lymph % (Auto) 9.9 L [place] % (Auto) 10.5 Eos % (Auto) 5.0 H Baso % (Auto) 0.8 Neut # (Auto) 4900 Lymph # (Auto) 700 L [place] # (Auto) 700 Eos # (Auto) 300 Baso # (Auto) 100 PT 13.2 H INR 1.2 APTT 29 Sodium 136 L Potassium 4.0 Chloride 103 Carbon Dioxide 26 BUN 15 Creatinine 0.71 Estimated GFR > 60 BUN/Creatinine Ratio 21.1 Glucose 111 H Calcium 9.9 05/22/23 05/22/23 05/22/23 02:17 02:17 02:17 WBC 6.4 RBC 3.67 L Hgb 12.0 Hct 35.0 L MCV 95.5 MCH 32.6 MCHC 34.1 RDW 13.0 Plt Count 346 Neut % (Auto) 70.3 Lymph % (Auto) 12.6 L [place] % (Auto) 12.6 Eos % (Auto) 3.8 Baso % (Auto) 0.7 Neut # (Auto) 4500 Lymph # (Auto) 800 L [place] # (Auto) 800 Eos # (Auto) 200 Baso # (Auto) 0 PT INR APTT 144 H* D Sodium 133 L Potassium 3.9 Chloride 102 Carbon Dioxide 24 BUN 13 Creatinine 0.65 Estimated GFR > 60 BUN/Creatinine Ratio 20.0 Glucose 110 Calcium 9.1 05/22/23 08:10 WBC RBC Hgb Hct MCV MCH MCHC RDW Plt Count Neut % (Auto) Lymph % (Auto) [place] % (Auto) Eos % (Auto) Baso % (Auto) Neut # (Auto) Lymph # (Auto) [place] # (Auto) Eos # (Auto) Baso # (Auto) PT INR APTT 122 H* D Sodium Potassium Chloride Carbon Dioxide BUN Creatinine Estimated GFR BUN/Creatinine Ratio Glucose Calcium PFSH Surgical History History of breast augmentation History of lumpectomy Social History household members: none Smoking Status: Former smoker alcohol intake: former Discharge Plan Discharge Plan Patient Disposition: Home Provider Discharge Comment: You were admitted to the hospital with a clot in your lower leg. This is treated with a blood thinner. Please take your dose of the blood thinner starting tonight (10 mg). This will continue twice a day for the next 6 days, then starting next Thursday morning take 1 pill twice a day (5 mg) which will continue for at least the next 3 months. 3 month prescription was sent to give you time to establish care with a primary provider. Discharge orders & Medications Prescriptions: New apixaban 5 mg tablet 5 mg PO BID 90 Days Qty: 189 0RF Rx Instructions: 10 mg twice daily for 11 doses (6.5 days) followed by 5 mg twice a day for the remainder of 90 days Medication counseling provided by Pharmacist: Yes Follow up/Referrals: Doctor Wade MD [Primary Care Provider] - Diet/Activity/Treatments Diet: Diet as Tolerated and Regular Visit Report/Discharge Packet Instructions: DI for Deep Vein Thrombosis, How to Monitor Your Blood Pressure at Home, Apixaban Stand Alone Forms: Patient Portal/API, Stroke Signs & Symptoms Discharge Data Primary Care Provider: Doctor Sheri Attending Provider: Brad Gardiner Admit Date/Time: 05/21/23 17:43 Discharges patient from system. Discharge Date/Time: 05/22/23 16:20 Quality VTE Deep Vein Thrombosis/Pulmonary Embolism Present on Admission: Yes
[2023-05-22 12:00] VITALS: BP 79/46; PULSE 79
--- NOTE | 2023-05-22 16:40 | PC.NURSE ---
PATIENT D/CD AT 16:20
--- NOTE | 2023-05-22 18:43 | PC.NURSE ---
Discharge: Pt feels ready to d/c to home. D/c instructions reviewed. RX has been esent. There was a question of costs for med and a coupon was obtained from the website. Lt leg is still large but is not hot or red. Feels stiff when she walks. Discharge packet reviewed. RX esent. Questions answered. Pt d/c to home via auto with friend.
--- NOTE | 2023-06-08 08:03 | PC.NURSE ---
Late Entry: Heparin gtt initiated 05/21 at 2009, discontinued per MD order 05/22 at 0848.
== END 2023-05-22 16:20 | disposition home or self-care (01) ==
LOC: ED 15:15 → AC 17:43
PROVIDERS: Admitting Provider Internal Medicine; Emergency Provider Physician Assistant; Referring Provider Physician Assistant; Visit Provider Internal Medicine
DX: I82.412 Acute embolism and thrombosis of left femoral vein (principal); K05.30 Chronic periodontitis, unspecified
CPT/HCPCS: 36415; 80048; 85025; 85610; 85730; 93971; 96365; 96366; 96372; 99283; 99284; G0378; J1644

== ENCOUNTER → 2023-08-06 09:54 | Outpatient (CLI) | payer OTHER, MEDICAID, SELFPAY ==
--- NOTE | 2023-08-06 | DI.RAD.S_ITS ---
PROCEDURE: XR WRIST RT MIN 3V INDICATIONS: WRIST PAIN AND SWELLING TECHNIQUE: 3 views of the wrist were acquired. COMPARISON: None. FINDINGS: Bones: No fractures or dislocations. No suspicious bony lesions. Soft tissues: No suspicious soft tissue calcifications. IMPRESSION: No acute bony abnormality. Approved by: Faisal Silva M.D. on 08/06/2023 at 20:52
--- NOTE | 2023-08-06 | DI.RAD.S_ITS ---
PROCEDURE: XR WRIST LT MIN 3V INDICATIONS: WRIST PAIN AND SWELLING TECHNIQUE: 4 views of the wrist were acquired. COMPARISON: None. FINDINGS: Bones: No fractures or dislocations. No suspicious bony lesions. First carpometacarpal joint space narrowing with subchondral sclerosis Soft tissues: No suspicious soft tissue calcifications. IMPRESSION: First CMC osteoarthritis Approved by: Faisal Silva M.D. on 08/06/2023 at 20:49
--- NOTE | 2023-08-06 | DI.US.S_ITS ---
PROCEDURE: US PERIP VENOUS LOW EXTREM LT INDICATIONS: LEFT LEG SWELLING TECHNIQUE: Real-time imaging, as well as color and pulse Doppler interrogation, were performed of the lower extremity deep veins from the inguinal ligament to the popliteal fossa, with documentation of the visualized calf veins. COMPARISON: [facility], , [facility] VENOUS LOW EXTREM LT, 05/21/2023, 12:59. FINDINGS: The common femoral, femoral, popliteal, and the visualized calf veins are normally compressible, and free of intraluminal thrombus. Color and pulse Doppler demonstrate normal phasic intraluminal flow. There is normal augmentation response to distal compression maneuver. IMPRESSION: No evidence of DVT in visualized left lower extremity veins. Dictated by: Sylvester Kingston M.D. on 08/06/2023 at 13:38 Approved by: Sylvester Kingston M.D. on 08/06/2023 at 13:38
== END ==
PROVIDERS: PCP Family Medicine; Referring Provider Family Medicine; Visit Provider Family Medicine
DX: M18.11 Unilateral primary osteoarthritis of first carpometacarpal joint, right hand (principal); M25.531 Pain in right wrist; M25.532 Pain in left wrist; I82.409 Acute embolism and thrombosis of unspecified deep veins of unspecified lower extremity
CPT/HCPCS: 73110; 93971

== ENCOUNTER → 2023-08-08 09:04 | Outpatient (CLI) | payer OTHER, MEDICAID, SELFPAY ==
[2023-08-08 09:51] LABS: Cholesterol 262 mg/dL (140-199); HDL Cholesterol 85 mg/dL (40-60); LDL Cholesterol Calculated 136 mg/dL (<100); Triglycerides 204 mg/dL (35-150)
[2023-08-08 16:25] LABS: HIV 1 & 2 Ab/Ag 4th Gen Combo NEGATIVE (NEGATIVE); Hep C Virus Ab w/Reflex Quant NEGATIVE s/c (NEGATIVE)
== END ==
PROVIDERS: PCP Family Medicine; Referring Provider Family Medicine; Visit Provider Family Medicine
DX: Z00.00 Encounter for general adult medical examination without abnormal findings (principal); Z11.4 Encounter for screening for human immunodeficiency virus [HIV]; Z11.59 Encounter for screening for other viral diseases; I82.409 Acute embolism and thrombosis of unspecified deep veins of unspecified lower extremity
CPT/HCPCS: 36415; 80061; 86803; 87389

== ENCOUNTER → 2024-07-19 13:18 | Outpatient (CLI) | payer MEDICARE, SELFPAY ==
--- NOTE | 2024-07-19 13:21 | DI.RAD.S_ITS ---
PROCEDURE: XR WRIST RT MIN 3V INDICATIONS: bilateral pain in wrists TECHNIQUE: Four views of the wrist were acquired. COMPARISON: [facility], [facility], XR WRIST RT MIN 3V, 08/06/2023, 10:43. FINDINGS: Bones: Small calcification adjacent to the radial base of the 1st metacarpal may represent a remote avulsion fracture. Joints: Severe STT and 1st CMC degenerative change appreciated. There is mild distal radial ulnar degeneration. Soft tissues: No soft tissue abnormality. IMPRESSION: Degeneration. Dictated by: Boby Tan M.D. on 07/20/2024 at 15:57 Approved by: Boby Tan M.D. on 07/20/2024 at 15:58
--- NOTE | 2024-07-19 13:21 | DI.CT.S_ITS ---
PROCEDURE: CT LUNG LOW DOSE SCREENING INDICATIONS: lung cancer screening TECHNIQUE: Noncontrast 2.0-2.5 mm thick sections acquired from the pulmonary apices to the posterior costophrenic angles. 7 mm thick axial MIP, and 5 mm coronal and sagittal reformats were then acquired. For radiation dose reduction, the following was used: automated exposure control, adjustment of mA and/or kV according to patient size. COMPARISON: None. FINDINGS: Image quality: Diagnostic Lungs: No emphysema. No pleural effusion, pneumothorax, pulmonary edema, or focal consolidation. No pulmonary nodule. Mediastinal/soft tissue findings: Mild calcification of the thoracic aorta. No thoracic aortic aneurysm. Heart is normal in size. No pericardial effusion. Mild LAD coronary artery calcification. No mediastinal, hilar, or axillary lymphadenopathy. Bilateral breast implants. Visualized upper abdomen: 2 mildly hypoattenuating lesion in hepatic segment 8, measuring up to 1.1 cm (2:82). The larger 1 likely represent liver cyst, while the other is too small to be characterized. Multiple left renal stone. Bones: No suspicious lytic or blastic osseous lesion. IMPRESSION: 1. No suspicious pulmonary nodules. LUNG-RADS 1; continued annual screening, if eligible. Clinically Significant Non-pulmonary Findings: None. Dictated by: Alicia Hansen M.D. on 07/19/2024 at 14:50 Approved by: Alicia Hansen M.D. on 07/19/2024 at 15:04
--- NOTE | 2024-07-19 13:21 | DI.RAD.S_ITS ---
PROCEDURE: XR WRIST LT MIN 3V INDICATIONS: bilateral pain in wrists TECHNIQUE: For views of the wrist were acquired. COMPARISON: [facility], CR, XR WRIST RT MIN 3V, 08/06/2023, 10:43. FINDINGS: Bones: Ulnar minus noted. Joints: Moderate distal radioulnar degeneration appreciated. Moderate STT degeneration also noted . 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 Soft tissues: No soft tissue abnormality. IMPRESSION: Degeneration Dictated by: Boby Tan M.D. on 07/20/2024 at 15:53 Approved by: Boby Tan M.D. on 07/20/2024 at 15:54
== END ==
PROVIDERS: PCP Family Medicine; Referring Provider Family Medicine; Visit Provider Family Medicine
DX: Z12.2 Encounter for screening for malignant neoplasm of respiratory organs (principal); Z87.891 Personal history of nicotine dependence; M18.0 Bilateral primary osteoarthritis of first carpometacarpal joints; M19.032 Primary osteoarthritis, left wrist; M19.031 Primary osteoarthritis, right wrist; M25.531 Pain in right wrist; M25.532 Pain in left wrist; G89.29 Other chronic pain
CPT/HCPCS: 71271; 73110

== ENCOUNTER → 2024-07-26 07:36 | Outpatient (CLI) | payer MEDICARE, SELFPAY ==
[2024-07-26 08:36] LABS: Hemoglobin 15.1 g/dL (12.0-16.0); Mean Corpuscular HGB Conc 33.6 % (30-36); Mean Corpuscular Hemoglobin 33.2 PG (26-34); Mean Corpuscular Volume 98.8 fL (80-100); Platelet Count 277 X10^3/uL (150-400); Red Blood Cell Count 4.55 X10^6/uL (4.0-5.2); Red Cell Distribution Width 12.6 % (11.6-14.8); White Blood Cell Count 5.3 X10^3/uL (4.5-11.0)
[2024-07-26 08:58] LABS: Alanine Aminotransferase 29 IU/L (<35); Albumin 4.4 g/dL (3.5-5.0); Albumin Globulin Ratio 1.5 (1.0-2.8); Alkaline Phosphatase 83 U/L (38-126); Aspartate Aminotransferase 39 IU/L (14-36); BUN Creatinine Ratio 12.5 (6-22); Bilirubin Total 0.7 mg/dL (0.2-1.3); Blood Urea Nitrogen 7 mg/dL (7-17); C-Reactive Protein Quant < 0.5 mg/dL (<1.0); Calcium 9.9 mg/dL (8.4-10.2); Carbon Dioxide 24 mmol/L (22-32); Chloride 107 mmol/L (98-107); Cholesterol 275 mg/dL (140-199); Estimated Glomerular Filt Rate > 60 mL/min (>60); Globulin 2.9 g/dL (1.7-4.1); Glucose 87 mg/dL (80-110); HDL Cholesterol 98 mg/dL (40-60); HEMOLYSIS < 15 (0-50); LDL Cholesterol Calculated 146 mg/dL (<100); Potassium 4.3 mmol/L (3.4-5.1); Sodium 138 mmol/L (137-145); Total Protein 7.3 g/dL (6.3-8.2); Triglycerides 156 mg/dL (35-150)
[2024-07-26 09:01] LABS: Rheumatoid Factor < 8.6 IU/mL (<12.0)
[2024-07-28 12:36] LABS: ANA Screen, IFA Negative (.)
[2024-07-28 15:09] LABS: CCP Antibodies IgG/IgA 6 units (0-19)
== END ==
PROVIDERS: PCP Family Medicine; Referring Provider Family Medicine; Visit Provider Family Medicine
DX: L40.9 Psoriasis, unspecified (principal); M25.531 Pain in right wrist; M25.532 Pain in left wrist; Z13.6 Encounter for screening for cardiovascular disorders; G89.29 Other chronic pain; M18.12 Unilateral primary osteoarthritis of first carpometacarpal joint, left hand; R74.8 Abnormal levels of other serum enzymes; E78.2 Mixed hyperlipidemia; I82.412 Acute embolism and thrombosis of left femoral vein; I78.1 Nevus, non-neoplastic; M79.7 Fibromyalgia
CPT/HCPCS: 36415; 80053; 80061; 85027; 86038; 86140; 86200; 86430

== ENCOUNTER → 2024-07-27 15:00 | Outpatient (CLI) | payer MEDICARE, SELFPAY ==
[2024-07-29 12:36] LABS: Fecal Immunochemical Test Negative (Negative)
== END ==
PROVIDERS: PCP Family Medicine; Referring Provider Family Medicine; Visit Provider Family Medicine
DX: Z12.11 Encounter for screening for malignant neoplasm of colon (principal)
CPT/HCPCS: 82274

== ENCOUNTER → 2025-04-20 13:29 | Outpatient (CLI) | payer MEDICARE, SELFPAY | PROVIDERS: PCP Family Medicine; Referring Provider Family Medicine; Visit Provider Family Medicine | DX: F10.21 Alcohol dependence, in remission (principal) | CPT/HCPCS: 80307 ==